=== PATIENT | male | born 1955 | race Caucasian/White ===

== ENCOUNTER 2024-07-10 06:08 | Day surgery (SDC) | payer MEDICARE, OTHER, SELFPAY ==
[2024-06-24 12:50] VITALS: BMI 32.6
--- NOTE | 2024-06-25 10:08 | W.PN.UPDATE ---
Update Note
Progress Note Update
Incidental thyroid nodule on chest CT-LM patient and faxed PCP.
[2024-07-10] VITALS (11 sets, daily range): BP systolic 105–138; BP diastolic 59–83
[2024-07-10 07:01] LABS: INR 1.93; PT 21.9 Sec (11.4-14.6)
--- NOTE | 2024-07-10 07:33 | ITS.CL.ABL ---
P[employer] Tender - Ablation
Ablation
Procedure Report:
Primary Franchise Manager: Dayo Hanna MD
Procedure Date: 07/10/2024
Patient History:
Patient is a pleasant 69-year-old male with a past medical history significant for hypertension, sleep apnea, chronic anticoagulation, paroxysmal atrial flutter, paroxysmal atrial fibrillation. Patient undergone PVI x 2 in September 2020, February 2021
as well as a CTI RFA February 2021. The second PVI occurring February 2021 addressed reconnected pulmonary veins, added roofline, as well as SVC/RA junction ablation with RF.
See H&P for complete details.
Indication:
Symptomatic paroxysmal atrial fibrillation
Symptomatic paroxysmal atrial flutter
Arrhythmia Specific History:
Prior Medical Therapies for Rate and Rhythm Control:
X Beta-dominick
[ ] Calcium channel-dominick
[ ] Amiodarone
[ ] Dronederone
[ ] Sotalol
[ ] Flecainide
[ ] Dofetilide
[ ] Options limited by bradycardia
[ ] Options limited by comorbid renal disease
Prior Procedural Therapies for AF/AFL:
[ ] Cardioversion
X Pulmonary Vein Isolation
[ ] Posterior Wall Isolation
X Additional lines (Specify) -CTI RFA, LA roof line
[ ] Surgical Harrell-MAZE or PVI (Specify)
Procedure Performed:
X AF ablation procedure (26922) -- includes LA/CS pacing, trans-septal, 3D mapping, + ICE
[ ] +IV drug (11417)
X +Other Arrhythmia (09293) -CTI RFA for typical atrial flutter
X +Other AF Line/ablation (36790) -roof/floor/posterior wall isolation
Risks and expected recovery has been explained in detail. Alternative options have been explored, and in a shared-decision making fashion we have decided that this was the most appropriate procedure.
Method
NPO status confirmed. Grounding pad applied. Defibrillator pads applied. Continuous surface ECG, pulse oximetry, and blood pressure were monitored. Procedure was performed under general anesthesia, with anesthesia services.
Both groins were clipped, prepped with Chloraprep, and draped in sterile fashion. Time out was called. Local anesthesia administered with bupivacaine. The right and left femoral veins were accessed for catheter placement, using ultrasound guidance,
micro-puncture needle/wire, and modified seldinger technique. 3 sheaths were placed. The following catheters were used:
X Tacticath SE (D/F Curve) ablation catheter
X Viewflex 9Fr ICE catheter
X Inquiry decapolar 6Fr diagnostic catheter
[ ] CRD Hex 6Fr
[ ] Arctic Front Advance Cryoballoon ([ ]28mm[ ]23mm)
[ ] Achieve Advance mapping catheter ([ ]15mm[ ]20mm)
X FlexCath Contour 10 Fr with PulseSelect PFA Catheter
X Advisor HD Grid Mapping Catheter, SE
[ ] Acuson AcuNav 8 Fr ICE catheter
[ ]Other: [ ]
Intracardiac ultrasound (ICE) was carefully advanced into the right atrium to guide sheath placement over a J-wire, catheter placement, guide trans-septal puncture, identify potential complications, identify anatomic structures and ensure proper
contact between ablation catheter and tissue.
Heparin was given prior to trans-septal puncture. Heparin was given to achieve and maintain a target ACT of 300-400 seconds throughout the procedure.
Trans-septal access was performed under ICE guidance. The trans-septal puncture was performed with a SafeSept wire through a Brockenbrough needle assembly through the steerable sheath. The wire was visualized as it entered the LSPV. The dilator was
gently advanced across the septum into the left atrium however there was inability to advance the sheath into the left atrium. The Brockenbrough needle assembly and safe septal wire were carefully removed under negative pressure with careful
visualization of dilator in the left atrium. Amplatz wire was advanced through the dilator into the left superior pulmonary vein visualized under intracardiac ultrasound and fluoroscopy. Next, the system was advanced under ICE guidance and
fluoroscopy into the LA. The sheath dilator were removed under negative pressure. LA pressure was measured and recorded.
ICE and 3D mapping was performed to identify relevant cardiac structures. A careful 3D map was created to assess for regions of low-voltage and abnormal electrogram signals using HD grid mapping catheter and PulseSelect catheter. The left superior
and left inferior pulmonary veins were noted to be reconnected. There was evidence of complex fractionation at the ostia of right superior and right inferior pulmonary veins. Additional mapping was performed as outlined below.
Prior to ablation, glycopyrrolate was provided. PulseSelect catheter was advanced over J-wire to the ostium of each vein. Pulmonary vein isolation was performed with ostial and antral lesions in a circumferential manner. Contact was visualized via
EAM, ICE, fluoroscopy, and EGM signals. Posterior wall isolation was performed by anchoring the J-wire within the pulmonary vein and placing the PulseSelect catheter in contact with the posterior wall as visualized by aforementioned methods.
Following completion of ablation lesions, a post-ablation voltage/activation map was performed in sinus rhythm. Entrance and exit block were confirmed for each vein and the posterior wall. Next, electrophysiology study was performed. Atrial
flutter at a cycle length of 290 ms was induced with atrial pacing. With extensive mapping with HD advisor grid in the left atrium, left atrium was noted to be passive with part of the cycle length within the left atrium earliest being from
interatrial septum. CS activation was noted to be proximal to distal. Pacing from proximal CS demonstrated PPI minus TCL of roughly 50 ms. Catheter and sheath removed from the left atrium and right atrial map was performed. Entire cycle length
was noted to be contained within the right atrium. Entrainment from the CTI demonstrated a PPI minus TCL of 0 ms. HD advisor grid was removed and arrhythmia had spontaneously terminated. TactiCath SE was advanced through steerable sheath.
Ablation was performed along the CTI. Initial transisthmus time was roughly 130 ms following completion of RF, transisthmus time was greater than 160 ms. Under CS pacing, split potentials were noted along the line. Following a waiting period, no
further arrhythmias were induced by electrophysiology study.
Post-ablation intracardiac echo evaluation was consistent with pre-ablation with no changes and no pericardial effusion and there is no left atrial thrombus or left ventricle thrombus seen. Electrophysiology study was performed. Hemostasis was
obtained with Vascade for each sheath and with manual pressure. Protamine was used for reversal.
Estimated Blood Loss
10 mL
Complications
None
Fluoroscopy: 14.5 minutes; 54.75 mGy; DAP 7.18
Baseline Intervals:
Rhythm: Sinus rhythm
ME: 218 ms
QRS: 93 ms
QT: 422 ms
QTc: 394 ms
Post-Procedure Intervals:
ME: 211 ms
QRS: 92 ms
QT: 423 ms
QTc: 429 ms
AVWB: 360 ms
AVERP: 600/230 ms
Recommendations
- Bedrest with straight-leg precautions as ordered
- Anticipate same day discharge if patient meeting clinical metrics
- Resume home medications as indicated
- Ok to resume anticoagulation tonight if patient and groin sites stable
- PPI daily for 30 days
- Plan for follow-up in office as scheduled
Fracisco Brunson DO
Clinical Cardiac Assistant Program Manager
cc: Dayo Hanna MD; Ravindra Middleton MD
[2024-07-10 09:33] LABS: ACT-LR - POC 366 Seconds (116-155)
[2024-07-10 10:00] LABS: ACT-LR - POC 369 Seconds (116-155)
[2024-07-10 10:24] LABS: ACT-LR - POC 388 Seconds (116-155)
[2024-07-10 11:07] LABS: ACT-LR - POC 163 Seconds (116-155)
--- NOTE | 2024-07-10 14:13 | W.PN.UPDATE ---
Update Note
Progress Note Update
69 yo WM s/p PVI (same day) He denies cp, sob, she diet, voiding, amb w/o dizziness, R fem site VASCADE c/d/i no HT, soft. He will resume Coumadin tonight and check INR on Monday. He will continue metoprolol. Activity restrictions reviewed. He will
f/u Dr. Hanna in1 mo. 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 He is for d/c home after 2pm.
[2024-07-10 14:37] LABS: ACT-LR - POC > 397 Seconds (116-155)
[2024-07-10 14:37] LABS: ACT-LR - POC > 397 Seconds (116-155)
[2024-07-10 14:37] LABS: ACT-LR - POC > 397 Seconds (116-155)
[2024-07-11 10:01] LABS: ACT-LR - POC > 397 Seconds (116-155)
== END 2024-07-10 14:40 | disposition home or self-care (01) ==
LOC: CATH 06:08
PROVIDERS: ATTENDING PHYSICIAN Internal Medicine Cardiovascular Disease; FAMILY PHYSICIAN Family Medicine; OTHER PHYSICIAN Internal Medicine Cardiovascular Disease
DX: I48.0 Paroxysmal atrial fibrillation (principal); I48.92 Unspecified atrial flutter; I10 Essential (primary) hypertension; G47.33 Obstructive sleep apnea (adult) (pediatric); I49.5 Sick sinus syndrome; E66.9 Obesity, unspecified; Z68.32 Body mass index [BMI] 32.0-32.9, adult; M19.90 Unspecified osteoarthritis, unspecified site; E04.1 Nontoxic single thyroid nodule; K76.0 Fatty (change of) liver, not elsewhere classified; Z79.899 Other long term (current) drug therapy; Z79.01 Long term (current) use of anticoagulants; I44.0 Atrioventricular block, first degree; I45.10 Unspecified right bundle-branch block; I87.2 Venous insufficiency (chronic) (peripheral); Z90.49 Acquired absence of other specified parts of digestive tract; Z98.890 Other specified postprocedural states
CPT/HCPCS: C1732; C1894; C1769; C1730; C1733; C2630; C1759; 85347; 85610; 93005; 93655; 93656; 93657; C1760; C1766